=== PATIENT | male | born 1995 | race Caucasian/White ===

== ENCOUNTER 2024-03-17 09:13 | Emergency (ER) | payer OTHER ==
[~2024-03-17] VITALS: Ht 175.3 cm; Wt 145.1 kg
[2024-03-17] MEDS: ONDANSETRON 4MG INJ IVP ONE (09:34)
[2024-03-17] MEDS: KETOROLAC 15MG/ML VIAL (15MG/ML) IV ONE (09:34)
[2024-03-17] MEDS: MORPHINE 2 MG SYG IVP ONE ×2 (09:35→10:54)
[2024-03-17 09:36] LABS: BASOPHILS # (AUTO) 0.02 K/uL (0.00-0.20); BASOPHILS % (AUTO) 0.3 % (0.0-5.0); EOSINOPHILS # (AUTO) 0.16 K/uL (0.00-0.70); EOSINOPHILS % (AUTO) 2.3 % (0.0-8.0); HEMATOCRIT 44.6 % (42-54); IMMATURE GRANULOCYTE ABSOLUTE 0.03 K/uL (0-1); LYMPHOCYTES # (AUTO) 2.6 K/uL (1.0-4.8); LYMPHOCYTES % (AUTO) 37.8 % (21.0-51.0); MEAN CORPUSCULAR HEMOGLOBIN 29.8 pg (27.0-33.0); MEAN CORPUSCULAR HGB CONC 34.8 g/dL (32.0-36.0); MEAN CORPUSCULAR VOLUME 85.8 fL (79-99); MONOCYTES # (AUTO) 0.4 K/uL (0.1-1.0); MONOCYTES % (AUTO) 6.2 % (3.0-13.0); NEUTROPHILS # (AUTO) 3.6 K/uL (1.8-7.7); PLATELET COUNT (AUTO) 211 K/uL (130-400); RED CELL DISTRIBUTION WIDTH 12.8 % (11.0-15.5); WHITE BLOOD COUNT (AUTO) 6.8 K/uL (4.8-10.8)
[2024-03-17 09:51] LABS: ALBUMIN 4.3 g/dL (3.5-5.0); BILIRUBIN,TOTAL 0.4 mg/dL (0.2-1.0); CREATININE 1.2 mg/dL (0.5-1.3); TOTAL PROTEIN, SERUM 8.2 g/dL (6.0-8.3)
[2024-03-17] MEDS ORDERED: KETO10TA2 PO (10:52)
[2024-03-17] MEDS ORDERED: TAMS-1 PO (10:52)
[2024-03-17] MEDS: TAMSULOSIN HCL 0.4 MG CAP.ER.24H PO ONE (10:53)
[2024-03-17] MEDS: 0.9%NACL 1000ML 1,000 ML IV ONE (11:02)
[2024-03-17 11:12] VITALS: BP 144/87; PULSE 89; RESP 20; O2SAT 98
== END 2024-03-17 11:13 | disposition home or self-care (01) ==
LOC: EEVIPCON 09:13 → EDH 09:13
DX: N13.2 Hydronephrosis with renal and ureteral calculous obstruction (principal); Z90.49 Acquired absence of other specified parts of digestive tract
CPT/HCPCS: 99285; 74176; 96374; 96375; 80053; 85025; 36415; 96376; J2270 ×2; J2405 ×2; J1885; J7030